=== PATIENT | female | born 1960 | race Caucasian/White ===

== ENCOUNTER → 2017-08-19 | Outpatient (CLI) | payer OTHER ==
[~2017-08-19] MED LIST: AMLO5TAB2 PO; CETI10CA PO; ESTR1PAT13 TD; FLUT200B INH; HYDR25TA6 PO; LOVA40TA2 PO; MONTELUKAST PO; PANT40TA5 PO
== END ==
LOC: STAR 08:09
PROVIDERS: ATTEND Otolaryngology
DX: Z02.9 Encounter for administrative examinations, unspecified (principal)

== ENCOUNTER → 2017-08-19 | Outpatient (CLI) | payer OTHER | END | disposition home or self-care (01) | LOC: CFH 09:30 → EDSTATUS 10:15 | PROVIDERS: ATTEND Family Medicine | DX: Z12.31 Encounter for screening mammogram for malignant neoplasm of breast (principal) | CPT/HCPCS: 77067 ==

== ENCOUNTER 2017-08-23 05:58 | Day surgery (SDC) | payer OTHER ==
[~2017-08-23] VITALS: Ht 172.7 cm; Wt 92.8 kg
[2017-08-23 06:48] VITALS: BP 131/86
[2017-08-23] MEDS ORDERED: LACTATED RINGERS 1,000 ML IV SCH (06:52)
[2017-08-23] MEDS ORDERED: LIDOCAINE-MPF 1%, 2ML INFIL ONE (07:00)
[2017-08-23] MEDS ORDERED: EPINEPHRINE 1 MG/ML, 1ML ONE (07:04)
[2017-08-23] MEDS ORDERED: LIDOCAINE 1%, 20ML ONE (07:04)
[2017-08-23] MEDS ORDERED: BACITRACIN OINT 500U/GM, 15 GM ONE (07:04)
[2017-08-23] MEDS ORDERED: OXYMETAZOLINE NASAL SPRAY 0.05%, 15ML ONE (07:04)
[2017-08-23] MEDS ORDERED: EPINEPHRINE TOPICAL SOLN 1 MG/ML, 30ML ONE (07:04)
[2017-08-23] MEDS ORDERED: FLUORESCEIN OPHTHALMIC 1 MG STRIP ONE (07:04)
[2017-08-23] MEDS ORDERED: ACETAMINOPHEN 500 MG TABLET ONE (07:16)
[2017-08-23] MEDS ORDERED: FAMOTIDINE 20 MG TABLET ONE (07:16)
[2017-08-23] MEDS ORDERED: GABAPENTIN 300 MG CAPSULE ONE (07:17)
[2017-08-23] MEDS ORDERED: FAMOTIDINE 20 MG TABLET PO ONE (07:30)
[2017-08-23] MEDS ORDERED: GABAPENTIN 300 MG CAPSULE PO ONE (07:30)
[2017-08-23] MEDS ORDERED: ACETAMINOPHEN 500 MG TABLET PO ONE (07:30)
[2017-08-23] MEDS ORDERED: FENTANYL PF 250 MCG/5ML ONE (08:14)
[2017-08-23] MEDS ORDERED: MIDAZOLAM 1 MG/ML, 2ML ONE (08:14)
[2017-08-23] MEDS ORDERED: PROPOFOL 50 ML ONE (08:18)
[2017-08-23] MEDS ORDERED: ALBUTEROL SULFATE 2.5 MG/3 ML NPPB PRN (09:30)
[2017-08-23] MEDS ORDERED: MEPERIDINE/PF 25MG/0.5ML IVPush PRN (09:30)
[2017-08-23] MEDS ORDERED: PROMETHAZINE 25 MG/ML, 1ML IV PRN (09:30)
[2017-08-23] MEDS ORDERED: OXYcodone 5 MG/5 ML ORAL.SOL UDC PO PRN (09:30)
[2017-08-23] MEDS ORDERED: ACETAMINOPHEN 650 MG/20.3 ML UDC ONE (10:28)
[2017-08-23] MEDS ORDERED: OXYcodone 5 MG/5 ML ORAL.SOL UDC ONE (10:28)
[2017-08-23] MEDS ORDERED: DEXAMETHASONE 4 MG/ML, 5ML ONE (10:48)
[2017-08-23] MEDS ORDERED: GLYCOPYRROLATE 0.2MG/1ML, 5ML ONE (10:48)
[2017-08-23] MEDS ORDERED: ONDANSETRON 2MG/ML, 2ML ONE (10:48)
[2017-08-23] MEDS ORDERED: ROCURONIUM 10 MG/ML,10ML ONE (10:48)
[2017-08-23] MEDS ORDERED: CEFAZOLIN 1,000 MG ONE (10:48)
[2017-08-23] MEDS ORDERED: NEOSTIGMINE 1 MG/ML, 10ML ONE (10:48)
[2017-08-23] MEDS ORDERED: PROPOFOL 10 MG/ML, 20ML ONE (10:49)
[2017-08-23] MEDS ORDERED: FENTANYL PF 100 MCG/2ML ONE (10:52)
[2017-08-23] MEDS: FENTANYL PF 100 MCG/2ML IV PRN ×2 (10:54→11:00)
== END 2017-08-23 13:15 ==
LOC: OUT 05:58
PROVIDERS: ATTEND Otolaryngology
DX: J32.9 Chronic sinusitis, unspecified (principal); I10 Essential (primary) hypertension; E78.00 Pure hypercholesterolemia, unspecified; J45.909 Unspecified asthma, uncomplicated; K21.9 Gastro-esophageal reflux disease without esophagitis; Z88.1 Allergy status to other antibiotic agents
CPT/HCPCS: 31240; 31256; 31259; 61782; 87070; 87075; 87077; 87102; 87205; 88304; 88305; 88311; J0171; J0690; J1100; J2250; J2405; J2704; J2710; J3010; J3490; J7120; 87186; 88312

== ENCOUNTER → 2017-12-06 | Outpatient (CLI) | payer OTHER ==
[2017-12-06 10:02] LABS: ALANINE AMINOTRANSFERASE 41 U/L (12-78); ALBUMIN 3.8 g/dL (3.4-5.0); ANION GAP 5 mmol/L (5-15); CALCIUM 8.5 mg/dL (8.5-10.1); CHLORIDE 106 mmol/L (98-107); CHOLESTEROL, TOTAL 205 mg/dL (140-239)
[2017-12-06 10:04] LABS: ALKALINE PHOSPHATASE 75 U/L (45-117); CHOL/HDL RATIO 3.1; HDL CHOL % 32 % (28-40); HDL CHOLESTEROL (DIRECT) 66 mg/dL (40-60); LDL CHOLESTEROL,CALCULATED 111 mg/dL (54-169); LDL/HDL RATIO 1.7 (0.5-3.0); TOTAL PROTEIN 7.1 g/dL (6.4-8.2); TRIGLYCERIDES 142 mg/dL (50-200); VLDL CHOLESTEROL 28 mg/dL (0-25)
== END | disposition home or self-care (01) ==
LOC: LAB 09:35
PROVIDERS: ATTEND Family Medicine
DX: E78.5 Hyperlipidemia, unspecified (principal)
CPT/HCPCS: 36415; 80053; 80061

== ENCOUNTER → 2018-01-18 | Outpatient (CLI) | payer OTHER | END | disposition home or self-care (01) | LOC: LAB 11:57 | PROVIDERS: ATTEND Allergy & Immunology | DX: J45.909 Unspecified asthma, uncomplicated (principal); D83.9 Common variable immunodeficiency, unspecified; Z88.2 Allergy status to sulfonamides; Z88.5 Allergy status to narcotic agent; Z87.891 Personal history of nicotine dependence | CPT/HCPCS: 36415; 82784; 82785; 82787; 86003 ==

== ENCOUNTER → 2018-06-12 | Outpatient (CLI) | payer OTHER ==
[~2018-06-12] MED LIST changes: +AMLO-150 PO; -AMLO5TAB2 PO
== END | disposition home or self-care (01) ==
LOC: CFH 12:24
PROVIDERS: ATTEND Family Medicine
DX: M19.011 Primary osteoarthritis, right shoulder (principal); M75.51 Bursitis of right shoulder

== ENCOUNTER → 2018-07-04 | Outpatient (CLI) | payer OTHER ==
[2018-07-04 09:14] LABS: ALANINE AMINOTRANSFERASE 32 U/L (12-78); ALBUMIN 3.9 g/dL (3.4-5.0); ANION GAP 5 mmol/L (5-15); CALCIUM 8.9 mg/dL (8.5-10.1); CHLORIDE 104 mmol/L (98-107)
[2018-07-04 09:17] LABS: ALKALINE PHOSPHATASE 78 U/L (45-117); BILIRUBIN,TOTAL 1.2 mg/dL (0.2-1.0); CHOL/HDL RATIO 3.3; CHOLESTEROL, TOTAL 220 mg/dL (140-239); CREATININE 0.66 mg/dL (0.55-1.02); HDL CHOL % 30 % (28-40); HDL CHOLESTEROL (DIRECT) 66 mg/dL (40-60); LDL CHOLESTEROL,CALCULATED 115 mg/dL (54-169); LDL/HDL RATIO 1.7 (0.5-3.0); TOTAL PROTEIN 7.5 g/dL (6.4-8.2); TRIGLYCERIDES 194 mg/dL (50-200); VLDL CHOLESTEROL 39 mg/dL (0-25)
== END | disposition home or self-care (01) ==
LOC: LAB 08:48
PROVIDERS: ATTEND Nurse Practitioner Family
DX: I10 Essential (primary) hypertension (principal)
CPT/HCPCS: 36415; 80053; 80061; 82043

== ENCOUNTER 2018-08-28 11:18 | Emergency (ER) | payer OTHER ==
[2018-08-28 11:20] VITALS: BP 163/92
[2018-08-28] MEDS ORDERED: [UNRECOGNIZED DRUG - CODE] INH (11:32)
[2018-08-28] MEDS ORDERED: PLEASE ENTER HEIGHT AND WEIGHT MC SCH (11:36)
[2018-08-28] MEDS ORDERED: KETOROLAC 30 MG/1 ML ONE (11:45)
[2018-08-28] MEDS ORDERED: KETOROLAC 30 MG/1 ML IM ONE (12:00)
[2018-08-28] MEDS ORDERED: SODIUM CHLORIDE 0.9% 1,000 ML IV ONE (12:42)
[2018-08-28 13:01] LABS: BASOPHILS # (AUTO) 0.02 x10^3/uL (0-0.1); BASOPHILS % (AUTO) 0 % (0-1); EOSINOPHILS # (AUTO) 0.37 x10^3/uL (0-0.4); EOSINOPHILS % (AUTO) 4 % (1-7); LYMPHOCYTES # (AUTO) 1.62 x10^3/uL (1-3.4); LYMPHOCYTES % (AUTO) 19 % (22-44); MD NO; MEAN CORPUSCULAR HEMOGLOBIN 32.7 pg (27.0-34.8); MEAN CORPUSCULAR HGB CONC 35.2 g/dL (32.4-35.8); MEAN CORPUSCULAR VOLUME 92.8 fL (80-100); MEAN PLATELET VOLUME 7.5 fL (7.4-10.4); MONOCYTES # (AUTO) 0.44 x10^3/uL (0.2-0.8); MONOCYTES % (AUTO) 5 % (2-9); NEUTROPHILS # (AUTO) 6.13 x10^3/uL (1.8-6.8); NEUTROPHILS % (AUTO) 71 % (42-75); PLATELET COUNT 282 x10^3/uL (130-400); RED BLOOD COUNT 4.55 x10^6/uL (3.82-5.3); RED CELL DISTRIBUTION WIDTH 12.5 % (9.6-15.2)
[2018-08-28 13:12] LABS: ALBUMIN 4.2 g/dL (3.4-5.0); ANION GAP 7 mmol/L (5-15); CALCIUM 9.2 mg/dL (8.5-10.1); CHLORIDE 104 mmol/L (98-107); CREATININE 0.69 mg/dL (0.55-1.02)
[2018-08-28] MEDS ORDERED: OMNIPAQUE 350 MG/ML, 75ML BOTTLE ONE (14:13)
== END 2018-08-28 14:29 | disposition home or self-care (01) ==
LOC: ED 13:43
DX: S22.42XA Multiple fractures of ribs, left side, initial encounter for closed fracture (principal); J45.909 Unspecified asthma, uncomplicated; Z87.891 Personal history of nicotine dependence; W01.0XXA Fall on same level from slipping, tripping and stumbling without subsequent striking against object, initial encounter; Y93.89 Activity, other specified; Y92.098 Other place in other non-institutional residence as the place of occurrence of the external cause; Y99.8 Other external cause status
CPT/HCPCS: 36415; 71101; 71260; 73080; 80048; 82040; 85025; 96372; 99284; J1885; J7030; Q9967

== ENCOUNTER 2018-10-17 09:48 | Emergency (ER) | payer OTHER ==
[~2018-10-17] VITALS: Ht 172.7 cm; Wt 93.0 kg
[~2018-10-17 09:48] MED LIST changes: +[UNRECOGNIZED DRUG - CODE] INH
--- NOTE | 2018-10-17 10:00 | NUR ---
PT TO ED AFTER TRIPPING OVER DOG THIS MORNING. PT REPORTS PAIN WTIH MOTION TO RIGHT ELBOW AND PAIN WITH EXTENSION. PT ALSO HAS SWELLING TO NOSE, EYES AND FOREHEAD, WITH LAC TO MID FOREHEAD ABOVE NOSE. PT CONNECTED TO MONITORS. VSS. NO NEEDS EXPRESSED. [facility] MED STUDENT TO BS FOR ASSESSMENT. AWAITING EDMD EVALUATION AND ORDERS AT THIS TIME.
[2018-10-17] MEDS ORDERED: BACITRACIN ZINC OINT 500U/GM, 0.9 GM ONE (10:06)
[2018-10-17] MEDS ORDERED: HYDROcodone/APAP 5/325 TABLET ONE (10:28)
[2018-10-17] MEDS ORDERED: HYDROcodone/APAP 5/325 TABLET PO PRN (10:30)
--- NOTE | 2018-10-17 10:33 | NUR ---
edmd assessment complete. orders received. pt medicated per mar. awaiting results. vss. no needs expressed. call light within reach. pt to ct at this time.
--- NOTE | 2018-10-17 10:50 | NUR ---
pt back from imaging.
--- NOTE | 2018-10-17 11:45 | NUR ---
pt resting in room. vss. no needs expressed. awaiting splint.
[2018-10-17 12:00] VITALS: BP 122/67
== END 2018-10-17 13:13 | disposition home or self-care (01) ==
LOC: ED 12:27
DX: S52.121A Displaced fracture of head of right radius, initial encounter for closed fracture (principal); J45.909 Unspecified asthma, uncomplicated; Z87.891 Personal history of nicotine dependence; W01.0XXA Fall on same level from slipping, tripping and stumbling without subsequent striking against object, initial encounter; Y93.01 Activity, walking, marching and hiking; Y92.410 Unspecified street and highway as the place of occurrence of the external cause; Y99.8 Other external cause status
CPT/HCPCS: 29105; 70486; 99284

== ENCOUNTER → 2018-11-03 | Outpatient (CLI) | payer OTHER ==
[~2018-11-03] MED LIST changes: +AMLO2.5T5 PO; +MONT10TA6 PO
== END | disposition home or self-care (01) ==
LOC: CFH 14:19
PROVIDERS: ATTEND Orthopaedic Surgery
DX: S52.121A Displaced fracture of head of right radius, initial encounter for closed fracture (principal); X58.XXXA Exposure to other specified factors, initial encounter; Y93.89 Activity, other specified; Y92.89 Other specified places as the place of occurrence of the external cause; Y99.8 Other external cause status

== ENCOUNTER 2019-03-16 11:05 | Outpatient (CLI) | payer OTHER | END 2019-03-16 23:59 | disposition home or self-care (01) | LOC: LAB 11:05 | PROVIDERS: ATTEND Internal Medicine Critical Care Medicine | DX: I48.91 Unspecified atrial fibrillation (principal) | CPT/HCPCS: 87015; 87070; 87102; 87116; 87205; 87206 ==

== ENCOUNTER 2019-03-26 07:03 | Outpatient (CLI) | payer OTHER ==
[2019-03-26 07:31] LABS: ALANINE AMINOTRANSFERASE 37 U/L (12-78); ALBUMIN 3.9 g/dL (3.4-5.0); ANION GAP 8 mmol/L (5-15); CALCIUM 8.8 mg/dL (8.5-10.1); CHLORIDE 104 mmol/L (98-107); CREATININE 0.71 mg/dL (0.55-1.02)
[2019-03-26 07:33] LABS: ALKALINE PHOSPHATASE 62 U/L (45-117); BILIRUBIN,TOTAL 1.1 mg/dL (0.2-1.0); CHOL/HDL RATIO 3.6; CHOLESTEROL, TOTAL 204 mg/dL (140-239); HDL CHOL % 28 % (28-40); HDL CHOLESTEROL (DIRECT) 57 mg/dL (40-60); LDL CHOLESTEROL,CALCULATED 84 mg/dL (54-169); LDL/HDL RATIO 1.5 (0.5-3.0); TOTAL PROTEIN 7.1 g/dL (6.4-8.2); TRIGLYCERIDES 314 mg/dL (50-200); VLDL CHOLESTEROL 63 mg/dL (0-25)
== END 2019-03-26 23:59 | disposition home or self-care (01) ==
LOC: CFH 07:03
PROVIDERS: ATTEND Family Medicine
DX: Z12.31 Encounter for screening mammogram for malignant neoplasm of breast (principal); I10 Essential (primary) hypertension; S42.40 Unspecified fracture of lower end of humerus; X58.XXXD Exposure to other specified factors, subsequent encounter; Z78.0 Asymptomatic menopausal state
CPT/HCPCS: 36415; 77063; 77067; 77080; 80053; 80061; 82043

== ENCOUNTER → 2019-04-02 | Outpatient (CLI) | payer OTHER | END | disposition home or self-care (01) | LOC: CARD 11:47 | PROVIDERS: ATTEND Registered Nurse | DX: J45.909 Unspecified asthma, uncomplicated (principal); Z82.49 Family history of ischemic heart disease and other diseases of the circulatory system; Z83.6 Family history of other diseases of the respiratory system; Z87.891 Personal history of nicotine dependence; Z88.5 Allergy status to narcotic agent | CPT/HCPCS: 94060; 94726; 94729 ==

== ENCOUNTER 2019-04-23 13:28 | Outpatient (CLI) | payer OTHER | END 2019-04-23 23:59 | disposition home or self-care (01) | LOC: RAD 13:28 → EDSTATUS 04-24 10:30 | PROVIDERS: ATTEND Internal Medicine Critical Care Medicine | DX: J47.9 Bronchiectasis, uncomplicated (principal); Z87.891 Personal history of nicotine dependence; Z82.5 Family history of asthma and other chronic lower respiratory diseases | CPT/HCPCS: 71250 ==

== ENCOUNTER 2019-04-27 12:50 | Day surgery (SDC) ==
[~2019-04-27 12:50] MED LIST changes: +LIDOCAINE 4% TOPICAL SOLUTION 50 ML ONE
[2019-04-27] MEDS ORDERED: SODIUM CHLORIDE 0.9% 1,000 ML IV SCH ×2 (13:14→13:30)
[2019-04-27] MEDS ORDERED: PLEASE ENTER HEIGHT AND WEIGHT MC SCH (13:30)
[2019-04-27] MEDS ORDERED: BREO (13:32)
[2019-04-27] MEDS ORDERED: PREDNISONE (13:32)
[2019-04-27] MEDS ORDERED: PREDNISONE PO (13:33)
[2019-04-27] MEDS ORDERED: NEBULIZER (13:33)
[2019-04-27 14:17] LABS: BASOPHILS # (AUTO) 0.03 x10^3/uL (0-0.1); BASOPHILS % (AUTO) 0 % (0-1); EOSINOPHILS # (AUTO) 0.14 x10^3/uL (0-0.4); EOSINOPHILS % (AUTO) 1 % (1-7); LYMPHOCYTES # (AUTO) 1.24 x10^3/uL (1-3.4); LYMPHOCYTES % (AUTO) 9 % (22-44); MD NO; MEAN CORPUSCULAR HEMOGLOBIN 32.6 pg (27.0-34.8); MEAN CORPUSCULAR HGB CONC 33.6 g/dL (32.4-35.8); MEAN CORPUSCULAR VOLUME 97.1 fL (80-100); MEAN PLATELET VOLUME 7.7 fL (7.4-10.4); MONOCYTES # (AUTO) 0.41 x10^3/uL (0.2-0.8); MONOCYTES % (AUTO) 3 % (2-9); NEUTROPHILS # (AUTO) 12.06 x10^3/uL (1.8-6.8); NEUTROPHILS % (AUTO) 87 % (42-75); PLATELET COUNT 284 x10^3/uL (130-400); RED BLOOD COUNT 4.43 x10^6/uL (3.82-5.3); RED CELL DISTRIBUTION WIDTH 12.8 % (9.6-15.2)
[2019-04-27 14:26] LABS: PROTHROMBIN TIME 10.5 Seconds (9.6-11.5)
[2019-04-27] MEDS ORDERED: FENTANYL PF 100 MCG/2ML ONE (14:57)
[2019-04-27] MEDS ORDERED: MIDAZOLAM 1 MG/ML, 5ML ONE (14:57)
== END 2019-04-27 17:57 | disposition home or self-care (01) ==
LOC: OUT 12:50
PROVIDERS: ATTEND Internal Medicine
DX: R91.8 Other nonspecific abnormal finding of lung field (principal); J20.9 Acute bronchitis, unspecified; J45.909 Unspecified asthma, uncomplicated; G47.30 Sleep apnea, unspecified; E78.2 Mixed hyperlipidemia; I10 Essential (primary) hypertension; Z88.5 Allergy status to narcotic agent; Z98.890 Other specified postprocedural states; Z79.899 Other long term (current) drug therapy; Z79.01 Long term (current) use of anticoagulants
CPT/HCPCS: 31624; 36415; 85025; 85610; 85730; 87015; 87070; 87102; 87116; 87205; 87206; 88112; 88305; 99152; 99153; J2250; J3010; 87107; 88312

== ENCOUNTER 2019-05-01 21:02 | Inpatient (IN) | payer OTHER ==
[~2019-05-01] VITALS: Ht 172.7 cm; Wt 102.1 kg
[~2019-05-01 21:02] MED LIST changes: +BREO; -LIDOCAINE 4% TOPICAL SOLUTION 50 ML ONE; +NEBULIZER; +PREDNISONE; +PREDNISONE PO
--- NOTE | 2019-05-01 21:28 | NUR ---
PT PRESENTING TO ER FOR SOB, N/V SINCE THIS AFTERNOON. HX OF ASTHMA, DID 5 NEB TREATMENTS AT HOME WITHOUT RELIEF. FEBRILE AT HOME, TOOK ADVIL AT 1800 BUT STATES VOMITTED AROUND 1930. CONNECTED TO ALL MONITORING, TACHY HR AT 130, RAPID RESP RATE. IV PLACED. MD TO BEDSIDE FOR ASSESSMENT. AWAITING ORDERS AT THIS TIME. FAMILY AT BEDSIDE. CALL LIGHT WITHIN REACH
--- NOTE | 2019-05-01 21:37 | NUR ---
FLUIDS STARTED. RAD AT BEDSIDE. PT GIVEN PO FLUIDS WITH MD PERMISSION.
[2019-05-01] MEDS ORDERED: ACETAMINOPHEN 325 MG TABLET ONE (21:40)
[2019-05-01] MEDS ORDERED: SODIUM CHLORIDE 0.9% 1,000ML IVBOLUS ONE ×2 (22:00→23:30)
[2019-05-01] MEDS ORDERED: ACETAMINOPHEN 325 MG TABLET PO ONE (22:00)
[2019-05-01 22:13] LABS: RAPID INFLUENZA A Negative (Negative); RAPID INFLUENZA B Negative (Negative)
--- NOTE | 2019-05-01 22:22 | NUR ---
LAB AT BEDSIDE FOR COLLECTION
[2019-05-01] MEDS ORDERED: MONT10TA6 PO (22:36)
[2019-05-01 22:41] LABS: MEAN CORPUSCULAR HEMOGLOBIN 32.6 pg (27.0-34.8); MEAN CORPUSCULAR VOLUME 95.7 fL (80-100); MEAN PLATELET VOLUME 7.4 fL (7.4-10.4); PLATELET COUNT 243 x10^3/uL (130-400); RED BLOOD COUNT 4.15 x10^6/uL (3.82-5.3); RED CELL DISTRIBUTION WIDTH 12.6 % (9.6-15.2)
--- NOTE | 2019-05-01 22:50 | NUR ---
REPORT GIVEN TO MIRIAN NICKERSON
[2019-05-01 22:54] LABS: ALBUMIN 3.3 g/dL (3.4-5.0); ANION GAP 9 mmol/L (5-15); CALCIUM 8.2 mg/dL (8.5-10.1); CHLORIDE 105 mmol/L (98-107); CREATININE 0.81 mg/dL (0.55-1.02)
[2019-05-01 22:57] LABS: TROPONIN I < 0.015 ng/mL (0.000-0.045)
[2019-05-01 23:19] LABS: MD YES
[2019-05-01 23:21] LABS: <PLATELET ESTIMATE> ADEQUATE; <PLT MORPHOLOGY> NORMAL PLT MORPH; <RBC MORPHOLOGY> NORMAL; BAND#(MANUAL) 0.59 x10^3/uL; BANDS%(MANUAL) 3 % (0-7); BASOS% (MANUAL) 1 % (0-1); LYMPH#(MANUAL) 0.99 x10^3/uL (1-3.4); LYMPHS% (MANUAL) 5 % (22-44); MONOS#(MANUAL) 0.59 x10^3/uL (0.3-2.7); MONOS% (MANUAL) 3 % (2-9); SEG#(MANUAL) 17.42 x10^3/uL (1.8-6.8); SEGS% (MANUAL) 88 % (42-75)
[2019-05-01] MEDS ORDERED: VANCOMYCIN PER PHARMACY MC ONE (23:30)
[2019-05-01] MEDS ORDERED: CEFTRIAXONE PMX 1GM/50ML 50 ML IVPB ONE (23:30)
[2019-05-01] MEDS ORDERED: AZITHROMYCIN 500 MG in SODIUM CHLORIDE 0.9% 250 ML IV ONE (23:30)
[2019-05-01] MEDS ORDERED: POTASSIUM CHLORIDE 20 MEQ TAB.ER.PRT PO ONE (23:30)
[2019-05-01] MEDS ORDERED: VANCOMYCIN 1,600 MG in SODIUM CHLORIDE 0.9% 250 ML IV ONE (23:30)
[2019-05-01] MEDS ORDERED: CEFTRIAXONE PMX 1GM/50ML 50 ML ONE (23:33)
[2019-05-02] MEDS ORDERED: POTASSIUM CHLORIDE 20 MEQ TAB.ER.PRT ONE (00:22)
[2019-05-02] MEDS ORDERED: ONDANSETRON 2MG/ML, 2ML IVPush PRN (00:30)
[2019-05-02] MEDS ORDERED: VANCOMYCIN PER PHARMACY MC PRN (00:30)
[2019-05-02] MEDS ORDERED: SODIUM CHLORIDE 0.9% 1,000 ML IV SCH (00:30)
[2019-05-02] MEDS ORDERED: ONDANSETRON ODT 4 MG PO PRN (00:30)
[2019-05-02] MEDS ORDERED: LIDODERM 5% PATCH TD PRN (00:30)
[2019-05-02] MEDS ORDERED: PHARMACOKINETIC CONSULTATION MC ONE (01:30)
[2019-05-02] MEDS ORDERED: PHARMACOKINETIC MONITORING MC PRN (01:30)
[2019-05-02] MEDS ORDERED: VANCOMYCIN 1,600 MG in SODIUM CHLORIDE 0.9% 250 ML IV SCH ×2 (01:30→15:00)
[2019-05-02 01:51] VITALS: BP 121/64
[2019-05-02] MEDS: PIPERACILLIN/TAZO/PMX 4.5GM 100 ML IV SCH ×3 (02:09→14:22)
[2019-05-02] MEDS: ACETAMINOPHEN 325 MG TABLET PO PRN ×2 (02:35→12:23)
[2019-05-02] MEDS ORDERED: ALBUTEROL SULFATE 2.5 MG/3 ML NPPB PRN (03:00)
[2019-05-02] MEDS: NS + 40MEQ KCL 1,000 ML IV SCH ×3 (03:04→20:27)
[2019-05-02 03:31] VITALS: BP 126/67
[2019-05-02 06:29] LABS: MEAN CORPUSCULAR HEMOGLOBIN 32.2 pg (27.0-34.8); MEAN CORPUSCULAR HGB CONC 33.3 g/dL (32.4-35.8); MEAN CORPUSCULAR VOLUME 96.6 fL (80-100); MEAN PLATELET VOLUME 7.6 fL (7.4-10.4); PLATELET COUNT 249 x10^3/uL (130-400); RED BLOOD COUNT 4.06 x10^6/uL (3.82-5.3); RED CELL DISTRIBUTION WIDTH 12.5 % (9.6-15.2)
[2019-05-02 06:38] LABS: ANION GAP 6 mmol/L (5-15); CALCIUM 8.1 mg/dL (8.5-10.1); CHLORIDE 109 mmol/L (98-107)
[2019-05-02 06:42] LABS: ALANINE AMINOTRANSFERASE 27 U/L (12-78); ALKALINE PHOSPHATASE 70 U/L (45-117); BILIRUBIN,TOTAL 1.8 mg/dL (0.2-1.0); CREATININE 0.75 mg/dL (0.55-1.02); TOTAL PROTEIN 6.5 g/dL (6.4-8.2)
[2019-05-02 07:28] VITALS: BP 106/63
[2019-05-02 07:37] LABS: BASOPHILS # (AUTO) 0.02 x10^3/uL (0-0.1); BASOPHILS % (AUTO) 0 % (0-1); EOSINOPHILS # (AUTO) 0.22 x10^3/uL (0-0.4); EOSINOPHILS % (AUTO) 1 % (1-7); LYMPHOCYTES # (AUTO) 1.27 x10^3/uL (1-3.4); LYMPHOCYTES % (AUTO) 7 % (22-44); MD SCAN; MONOCYTES # (AUTO) 0.98 x10^3/uL (0.2-0.8); MONOCYTES % (AUTO) 5 % (2-9); NEUTROPHILS # (AUTO) 16.48 x10^3/uL (1.8-6.8); NEUTROPHILS % (AUTO) 87 % (42-75)
[2019-05-02] MEDS: ENOXAPARIN 40 MG/0.4 ML SQ SCH ×2 (08:12→20:27)
[2019-05-02] MEDS: AMLODIPINE 2.5 MG TABLET PO SCH (08:19)
[2019-05-02] MEDS: CETIRIZINE 10 MG TABLET PO SCH (08:19)
[2019-05-02] MEDS: PANTOPROZOLE 40MG TABLET PO SCH (08:20)
[2019-05-02 13:14] VITALS: BP 126/73
[2019-05-02] MEDS: NEUTRA PHOS K 250 MG TABLET PO SCH ×2 (18:22→20:24)
[2019-05-02] MEDS: LEVOFLOXACIN 750 MG TABLET PO SCH (18:22)
[2019-05-02 20:11] VITALS: BP 128/77
[2019-05-02] MEDS: LOVASTATIN 40 MG TABLET PO SCH (20:25)
[2019-05-02] MEDS: MONTELUKAST 10 MG TABLET PO SCH (20:25)
[2019-05-02] MEDS: METHOCARBAMOL 500 MG TABLET PO PRN (20:43)
[2019-05-03] MEDS: NS + 40MEQ KCL 1,000 ML IV SCH ×2 (02:57→08:50)
[2019-05-03 02:59] VITALS: BP 136/78
[2019-05-03 05:25] LABS: CALCIUM 7.7 mg/dL (8.5-10.1); CHLORIDE 110 mmol/L (98-107)
[2019-05-03 05:29] LABS: BASOPHILS # (AUTO) 0.04 x10^3/uL (0-0.1); BASOPHILS % (AUTO) 0 % (0-1); EOSINOPHILS % (AUTO) 2 % (1-7); LYMPHOCYTES # (AUTO) 1.48 x10^3/uL (1-3.4); LYMPHOCYTES % (AUTO) 12 % (22-44); MD NO; MEAN CORPUSCULAR HEMOGLOBIN 32.2 pg (27.0-34.8); MEAN CORPUSCULAR HGB CONC 33.2 g/dL (32.4-35.8); MEAN CORPUSCULAR VOLUME 97.1 fL (80-100); MEAN PLATELET VOLUME 7.4 fL (7.4-10.4); MONOCYTES # (AUTO) 0.89 x10^3/uL (0.2-0.8); MONOCYTES % (AUTO) 7 % (2-9); NEUTROPHILS # (AUTO) 10.15 x10^3/uL (1.8-6.8); NEUTROPHILS % (AUTO) 79 % (42-75); PLATELET COUNT 221 x10^3/uL (130-400); RED BLOOD COUNT 3.57 x10^6/uL (3.82-5.3); RED CELL DISTRIBUTION WIDTH 12.7 % (9.6-15.2)
[2019-05-03 05:32] LABS: ALANINE AMINOTRANSFERASE 29 U/L (12-78); ALBUMIN 2.9 g/dL (3.4-5.0); ALKALINE PHOSPHATASE 70 U/L (45-117); ANION GAP 6 mmol/L (5-15); BILIRUBIN,TOTAL 1.2 mg/dL (0.2-1.0); CREATININE 0.61 mg/dL (0.55-1.02); TOTAL PROTEIN 6.1 g/dL (6.4-8.2)
[2019-05-03 07:05] VITALS: BP 122/77
[2019-05-03] MEDS: AMLODIPINE 2.5 MG TABLET PO SCH (08:58)
[2019-05-03] MEDS: CETIRIZINE 10 MG TABLET PO SCH (08:58)
[2019-05-03] MEDS: PANTOPROZOLE 40MG TABLET PO SCH (08:58)
[2019-05-03] MEDS: NEUTRA PHOS K 250 MG TABLET PO SCH ×3 (08:58→19:29)
[2019-05-03 13:30] VITALS: BP 128/81
[2019-05-03] MEDS: LEVOFLOXACIN 750 MG TABLET PO SCH (16:53)
[2019-05-03] MEDS: METHOCARBAMOL 500 MG TABLET PO PRN (19:28)
[2019-05-03] MEDS: LOVASTATIN 40 MG TABLET PO SCH (19:28)
[2019-05-03] MEDS: MONTELUKAST 10 MG TABLET PO SCH (19:28)
[2019-05-03] MEDS: ENOXAPARIN 40 MG/0.4 ML SQ SCH (19:29)
[2019-05-03 19:35] VITALS: BP 134/81
[2019-05-04] MEDS: ACETAMINOPHEN 325 MG TABLET PO PRN (01:35)
[2019-05-04 01:38] VITALS: BP 137/83
[2019-05-04 07:40] VITALS: BP 124/67
[2019-05-04] MEDS: PANTOPROZOLE 40MG TABLET PO SCH (07:56)
[2019-05-04] MEDS: NEUTRA PHOS K 250 MG TABLET PO SCH ×3 (09:19→20:26)
[2019-05-04] MEDS: AMLODIPINE 2.5 MG TABLET PO SCH (09:19)
[2019-05-04] MEDS: CETIRIZINE 10 MG TABLET PO SCH (09:19)
[2019-05-04 13:10] VITALS: BP 120/74
[2019-05-04] MEDS: LEVOFLOXACIN 750 MG TABLET PO SCH (16:58)
[2019-05-04] MEDS: ENOXAPARIN 40 MG/0.4 ML SQ SCH (20:26)
[2019-05-04] MEDS: MONTELUKAST 10 MG TABLET PO SCH (20:26)
[2019-05-04] MEDS: LOVASTATIN 40 MG TABLET PO SCH (20:26)
[2019-05-04 20:39] VITALS: BP 132/75
[2019-05-04] MEDS ORDERED: DOCUSATE 100 MG CAPSULE ONE (21:13)
[2019-05-04] MEDS: DOCUSATE 100 MG CAPSULE PO PRN (21:15)
[2019-05-05 02:04] VITALS: BP 118/72
[2019-05-05 05:24] LABS: BASOPHILS # (AUTO) 0.07 x10^3/uL (0-0.1); BASOPHILS % (AUTO) 1 % (0-1); EOSINOPHILS % (AUTO) 1 % (1-7); LYMPHOCYTES # (AUTO) 1.42 x10^3/uL (1-3.4); LYMPHOCYTES % (AUTO) 17 % (22-44); MD NO; MEAN CORPUSCULAR HGB CONC 34.3 g/dL (32.4-35.8); MEAN CORPUSCULAR VOLUME 96.2 fL (80-100); MEAN PLATELET VOLUME 7.3 fL (7.4-10.4); MONOCYTES # (AUTO) 0.69 x10^3/uL (0.2-0.8); MONOCYTES % (AUTO) 8 % (2-9); NEUTROPHILS % (AUTO) 72 % (42-75); PLATELET COUNT 213 x10^3/uL (130-400); RED BLOOD COUNT 3.17 x10^6/uL (3.82-5.3); RED CELL DISTRIBUTION WIDTH 12.3 % (9.6-15.2)
[2019-05-05 05:26] LABS: ANION GAP 5 mmol/L (5-15); CHLORIDE 105 mmol/L (98-107); CREATININE 0.51 mg/dL (0.55-1.02)
[2019-05-05 07:05] VITALS: BP 117/74
[2019-05-05] MEDS: NEUTRA PHOS K 250 MG TABLET PO SCH (09:22)
[2019-05-05] MEDS: PANTOPROZOLE 40MG TABLET PO SCH (09:22)
[2019-05-05] MEDS: AMLODIPINE 2.5 MG TABLET PO SCH (09:22)
[2019-05-05] MEDS: CETIRIZINE 10 MG TABLET PO SCH (09:22)
[2019-05-05] MEDS: DOCUSATE 100 MG CAPSULE PO PRN (09:56)
[2019-05-05] MEDS ORDERED: LEVO750T26 PO (10:00)
[2019-05-05] MEDS ORDERED: GUAI200T37 PO (10:00)
[2019-05-05] MEDS ORDERED: PNEUMOC 13-VALENT VACC, 0.5 ML IM-VACC ONE ×2 (12:00→14:00)
[2019-05-05 13:38] VITALS: BP 116/72
[2019-05-05] MEDS ORDERED: TRAM50TA2 PO (15:15)
== END 2019-05-05 15:10 | disposition home or self-care (01) | DRG 871 ==
LOC: ED 21:20 → EDIP 23:32 → 5SO 05-02 01:02 → DCLOUNGE 05-05 15:00
PROVIDERS: ADMIT Internal Medicine; ATTEND Internal Medicine
DX: A41.9 Sepsis, unspecified organism (principal); J15.9 Unspecified bacterial pneumonia; A31.0 Pulmonary mycobacterial infection; E78.5 Hyperlipidemia, unspecified; E83.39 Other disorders of phosphorus metabolism; E87.6 Hypokalemia; I10 Essential (primary) hypertension; J45.909 Unspecified asthma, uncomplicated; K21.9 Gastro-esophageal reflux disease without esophagitis; R09.02 Hypoxemia; Z88.5 Allergy status to narcotic agent; Z81.8 Family history of other mental and behavioral disorders; Z82.49 Family history of ischemic heart disease and other diseases of the circulatory system; Z87.891 Personal history of nicotine dependence; Z90.710 Acquired absence of both cervix and uterus
CPT/HCPCS: 36415; 84145; 87400; 96360; 96361; 99291; J7613; 71045; 80048; 80053; 82040; 83605; 83735; 84100; 84484; 85025; 87040; 87070; 87077; 87184; 87205; 87633; 93005; G0378; J0456; J0696; J2405; J2543; J3370; G0009; J3480; J7030; J7050

== ENCOUNTER → 2019-05-08 | Outpatient (CLI) | payer OTHER ==
[~2019-05-08] MED LIST changes: +GUAI200T37 PO; +LEVO750T26 PO; +TRAM50TA2 PO
== END | disposition home or self-care (01) ==
LOC: LAB 17:11
PROVIDERS: ATTEND Internal Medicine
DX: J45.40 Moderate persistent asthma, uncomplicated (principal); Z87.891 Personal history of nicotine dependence
CPT/HCPCS: 87070; 87205

== ENCOUNTER → 2019-05-11 | Outpatient (CLI) | payer OTHER ==
[2019-05-11 10:26] LABS: BASOPHILS # (AUTO) 0.02 x10^3/uL (0-0.1); BASOPHILS % (AUTO) 0 % (0-1); EOSINOPHILS # (AUTO) 0.23 x10^3/uL (0-0.4); EOSINOPHILS % (AUTO) 3 % (1-7); LYMPHOCYTES % (AUTO) 22 % (22-44); MD NO; MEAN CORPUSCULAR HEMOGLOBIN 31.9 pg (27.0-34.8); MEAN CORPUSCULAR VOLUME 96.6 fL (80-100); MEAN PLATELET VOLUME 6.6 fL (7.4-10.4); MONOCYTES # (AUTO) 0.58 x10^3/uL (0.2-0.8); MONOCYTES % (AUTO) 8 % (2-9); NEUTROPHILS # (AUTO) 4.82 x10^3/uL (1.8-6.8); NEUTROPHILS % (AUTO) 66 % (42-75); PLATELET COUNT 357 x10^3/uL (130-400); RED BLOOD COUNT 4.36 x10^6/uL (3.82-5.3); RED CELL DISTRIBUTION WIDTH 12.3 % (9.6-15.2)
[2019-05-11 10:36] LABS: ALANINE AMINOTRANSFERASE 46 U/L (12-78); ALBUMIN 3.6 g/dL (3.4-5.0); ANION GAP 7 mmol/L (5-15); CALCIUM 9.4 mg/dL (8.5-10.1); CHLORIDE 103 mmol/L (98-107); CREATININE 0.78 mg/dL (0.55-1.02)
[2019-05-11 10:38] LABS: HCT (SEDRATE) 42.1 % (34.6-47.8)
[2019-05-11 10:43] LABS: ALKALINE PHOSPHATASE 82 U/L (45-117); BILIRUBIN,TOTAL 0.8 mg/dL (0.2-1.0); TOTAL PROTEIN 7.6 g/dL (6.4-8.2)
== END | disposition home or self-care (01) ==
LOC: LAB 10:14
PROVIDERS: ATTEND Internal Medicine Infectious Disease
DX: A31.0 Pulmonary mycobacterial infection (principal); J18.9 Pneumonia, unspecified organism; R79.82 Elevated C-reactive protein (CRP); R70.0 Elevated erythrocyte sedimentation rate
CPT/HCPCS: 36415; 80053; 85025; 85651; 86140

== ENCOUNTER → 2019-07-23 | Outpatient (CLI) | payer OTHER ==
[~2019-07-23] MED LIST changes: +CETI10TA26 PO; +FLUT1AER INH; +[UNRECOGNIZED DRUG - CODE] NAS
== END | disposition home or self-care (01) ==
LOC: LAB 10:37
PROVIDERS: ATTEND Internal Medicine
DX: J18.9 Pneumonia, unspecified organism (principal); E66.1 Drug-induced obesity; B44.9 Aspergillosis, unspecified; J45.40 Moderate persistent asthma, uncomplicated; J47.9 Bronchiectasis, uncomplicated
CPT/HCPCS: 87070; 87205

== ENCOUNTER → 2019-07-23 | Outpatient (CLI) | payer OTHER | END | disposition home or self-care (01) | LOC: STAR 08:17 | PROVIDERS: ATTEND Obstetrics & Gynecology Female Pelvic Medicine and Reconstructive Surgery | DX: Z01.818 Encounter for other preprocedural examination (principal); N81.10 Cystocele, unspecified; N81.6 Rectocele; N39.3 Stress incontinence (female) (male); R10.2 Pelvic and perineal pain | CPT/HCPCS: 93005 ==

== ENCOUNTER → 2019-08-20 | Outpatient (CLI) | payer OTHER | END | disposition home or self-care (01) | LOC: LAB 14:49 | PROVIDERS: ATTEND Allergy & Immunology Allergy | DX: D84.9 Immunodeficiency, unspecified (principal); Z87.01 Personal history of pneumonia (recurrent) | CPT/HCPCS: 36415; 82784; 82785; 86317; 86609 ==

== ENCOUNTER → 2019-10-15 | Outpatient (CLI) | payer OTHER | END | disposition home or self-care (01) | LOC: LAB 10:20 | PROVIDERS: ATTEND Internal Medicine | DX: J45.40 Moderate persistent asthma, uncomplicated (principal); J18.9 Pneumonia, unspecified organism; B44.9 Aspergillosis, unspecified; E66.1 Drug-induced obesity; J47.9 Bronchiectasis, uncomplicated | CPT/HCPCS: 87070; 87205 ==

== ENCOUNTER 2019-12-04 15:15 | Outpatient (CLI) | payer OTHER ==
[~2019-12-04 15:15] MED LIST changes: -CETI10TA26 PO; +CETI10TA76 PO; -PANT40TA5 PO; +PANT40TA6 PO
== END 2019-12-04 23:59 | disposition home or self-care (01) ==
LOC: LAB 15:15
PROVIDERS: ATTEND Internal Medicine
DX: J45.50 Severe persistent asthma, uncomplicated (principal); J45.40 Moderate persistent asthma, uncomplicated
CPT/HCPCS: 36415; 82785; 86606; 87015; 87070; 87102; 87116; 87181; 87186; 87205; 87206; 87305

== ENCOUNTER 2019-12-31 07:10 | Outpatient (CLI) | payer OTHER ==
[2019-12-31 07:32] LABS: BASOPHILS # (AUTO) 0.02 x10^3/uL (0-0.1); BASOPHILS % (AUTO) 0 % (0-1); EOSINOPHILS # (AUTO) 0.22 x10^3/uL (0-0.4); EOSINOPHILS % (AUTO) 4 % (1-7); LYMPHOCYTES # (AUTO) 1.52 x10^3/uL (1-3.4); LYMPHOCYTES % (AUTO) 24 % (22-44); MD NO; MEAN CORPUSCULAR HEMOGLOBIN 31.5 pg (27.0-34.8); MEAN CORPUSCULAR HGB CONC 33.4 g/dL (32.4-35.8); MEAN PLATELET VOLUME 6.9 fL (7.4-10.4); MONOCYTES # (AUTO) 0.45 x10^3/uL (0.2-0.8); MONOCYTES % (AUTO) 7 % (2-9); NEUTROPHILS # (AUTO) 4.08 x10^3/uL (1.8-6.8); NEUTROPHILS % (AUTO) 65 % (42-75); PLATELET COUNT 242 x10^3/uL (130-400); RED BLOOD COUNT 4.25 x10^6/uL (3.82-5.3); RED CELL DISTRIBUTION WIDTH 12.5 % (9.6-15.2)
[2019-12-31 07:44] LABS: CALCIUM 8.9 mg/dL (8.5-10.1); CHLORIDE 107 mmol/L (98-107)
[2019-12-31 07:48] LABS: ALANINE AMINOTRANSFERASE 40 U/L (12-78); ALKALINE PHOSPHATASE 75 U/L (45-117); ANION GAP 7 mmol/L (5-15); BILIRUBIN,TOTAL 1.1 mg/dL (0.2-1.0); CHOL/HDL RATIO 3.5; CHOLESTEROL, TOTAL 225 mg/dL (140-239); CREATININE 0.73 mg/dL (0.55-1.02); HDL CHOL % 29 % (28-40); HDL CHOLESTEROL (DIRECT) 65 mg/dL (40-60); LDL CHOLESTEROL,CALCULATED 133 mg/dL (54-169); TOTAL PROTEIN 7.1 g/dL (6.4-8.2); TRIGLYCERIDES 137 mg/dL (50-200); VLDL CHOLESTEROL 27 mg/dL (0-25)
== END 2019-12-31 23:59 | disposition home or self-care (01) ==
LOC: LAB 07:10
PROVIDERS: ATTEND Family Medicine
DX: I10 Essential (primary) hypertension (principal); D72.829 Elevated white blood cell count, unspecified; Z87.01 Personal history of pneumonia (recurrent)
CPT/HCPCS: 36415; 80053; 80061; 82043; 85025; 86609

== ENCOUNTER → 2020-01-08 | Outpatient (CLI) | payer OTHER ==
[~2020-01-08] MED LIST changes: +CETI10TA26 PO; -CETI10TA76 PO; +PANT40TA5 PO; -PANT40TA6 PO
== END | disposition home or self-care (01) ==
LOC: CFH 08:14
PROVIDERS: ATTEND Internal Medicine
DX: J45.40 Moderate persistent asthma, uncomplicated (principal)
CPT/HCPCS: 71250

== ENCOUNTER 2020-01-28 14:13 | Outpatient (CLI) | payer OTHER ==
[~2020-01-28 14:13] MED LIST changes: -CETI10TA26 PO; +CETI10TA76 PO; -PANT40TA5 PO; +PANT40TA6 PO
== END 2020-01-29 23:59 | disposition home or self-care (01) ==
LOC: STAR 14:13
PROVIDERS: ATTEND Internal Medicine
DX: Z01.818 Encounter for other preprocedural examination (principal); J45.40 Moderate persistent asthma, uncomplicated; Z20.828 Contact with and (suspected) exposure to other viral communicable diseases
CPT/HCPCS: 36415; 87635; 93005

== ENCOUNTER 2020-02-01 10:53 | Day surgery (SDC) | payer OTHER ==
[~2020-02-01] VITALS: Ht 172.7 cm; Wt 92.3 kg
[2020-02-01] MEDS ORDERED: SODIUM CHLORIDE 0.9% 1,000 ML IV ONE (11:11)
[2020-02-01] MEDS ORDERED: CHLORHEXIDINE 15 ML UDC ONE (11:19)
[2020-02-01 11:24] VITALS: BP 165/105
[2020-02-01] MEDS ORDERED: CHLORHEXIDINE 15 ML UDC MM STA (11:30)
[2020-02-01] MEDS ORDERED: FENTANYL PF 100 MCG/2ML ONE (12:51)
[2020-02-01] MEDS ORDERED: MIDAZOLAM 1 MG/ML, 5ML ONE (12:51)
[2020-02-01] MEDS ORDERED: GLYCOPYRROLATE 0.4 MG/2 ML, 2ML ONE (12:52)
[2020-02-01] MEDS ORDERED: DIPHENHYDRAMINE 50 MG/ML, 1ML ONE (12:52)
[2020-02-01] MEDS ORDERED: ALBUTEROL SULFATE 2.5 MG/3 ML ONE ×2 (13:00→15:11)
[2020-02-01] MEDS ORDERED: ALBUTEROL SULFATE 2.5 MG/3 ML NPPB PRN (15:00)
[2020-02-01] MEDS ORDERED: LIDOCAINE GEL 2%, 5ML ONE (15:00)
[2020-02-01] MEDS ORDERED: LIDOCAINE 4% TOPICAL SOLUTION 50 ML ONE (15:00)
[2020-02-01] MEDS ORDERED: LIDOCAINE 2%, 20ML ONE (15:00)
== END 2020-02-01 16:40 | disposition home or self-care (01) ==
LOC: OUT 10:53
PROVIDERS: ATTEND Internal Medicine
DX: J45.50 Severe persistent asthma, uncomplicated (principal); G47.33 Obstructive sleep apnea (adult) (pediatric); I10 Essential (primary) hypertension; E78.2 Mixed hyperlipidemia; E66.9 Obesity, unspecified; Z68.31 Body mass index [BMI] 31.0-31.9, adult; Z79.899 Other long term (current) drug therapy; Z88.5 Allergy status to narcotic agent
CPT/HCPCS: 31660; 94640; 99152; 99153; C1886; J1200; J2250; J3010

== ENCOUNTER → 2020-03-03 | Outpatient (CLI) | payer OTHER | END | disposition home or self-care (01) | LOC: STAR 15:15 | PROVIDERS: ATTEND Anesthesiology | DX: Z01.812 Encounter for preprocedural laboratory examination (principal); Z20.828 Contact with and (suspected) exposure to other viral communicable diseases | CPT/HCPCS: 36415; 87635 ==

== ENCOUNTER 2020-03-07 06:26 | Day surgery (SDC) | payer OTHER ==
[~2020-03-07] VITALS: Ht 172.7 cm; Wt 93.0 kg
[2020-03-07 06:44] VITALS: BP 157/89
[2020-03-07] MEDS ORDERED: SODIUM CHLORIDE 0.9% 1,000 ML IV SCH (06:47)
[2020-03-07] MEDS ORDERED: DIPHENHYDRAMINE 50 MG/ML, 1ML ONE (07:12)
[2020-03-07] MEDS ORDERED: GLYCOPYRROLATE 0.4 MG/2 ML, 2ML ONE (07:12)
[2020-03-07] MEDS ORDERED: FENTANYL PF 100 MCG/2ML ONE (07:14)
[2020-03-07] MEDS ORDERED: MIDAZOLAM 1 MG/ML, 5ML ONE (07:14)
[2020-03-07] MEDS ORDERED: LIDOCAINE GEL 2%, 5ML ONE (08:00)
[2020-03-07] MEDS ORDERED: LIDOCAINE 2%, 20ML ONE (08:00)
[2020-03-07] MEDS ORDERED: LIDOCAINE 4% TOPICAL SOLUTION 50 ML ONE (08:00)
[2020-03-07] MEDS ORDERED: ALBUTEROL SULFATE 2.5 MG/3 ML ONE (09:03)
== END 2020-03-07 10:50 | disposition home or self-care (01) ==
LOC: OUT 06:26
PROVIDERS: ATTEND Internal Medicine
DX: J45.50 Severe persistent asthma, uncomplicated (principal); J30.9 Allergic rhinitis, unspecified; I10 Essential (primary) hypertension; E78.2 Mixed hyperlipidemia; G47.33 Obstructive sleep apnea (adult) (pediatric); Z79.899 Other long term (current) drug therapy; Z88.5 Allergy status to narcotic agent
CPT/HCPCS: 31660; 99152; 99153; C1886; J1200; J2250; J3010; J7030

== ENCOUNTER 2020-03-26 09:03 | Day surgery (SDC) | payer OTHER ==
[~2020-03-26] VITALS: Ht 172.7 cm; Wt 96.2 kg
[~2020-03-26 09:03] MED LIST changes: +EPINEPHRINE SYRINGE 0.1 MG/ML, 10ML ONE; +LIDOCAINE 2%, 20ML ONE; +ROCURONIUM 10MG/ML,5ML ONE
[2020-03-26 09:27] VITALS: BP 151/92
[2020-03-26] MEDS ORDERED: CHLORHEXIDINE 15 ML UDC MM ONE (09:30)
[2020-03-26] MEDS ORDERED: DIPHENHYDRAMINE 50 MG/ML, 1ML IVPush PRN (09:30)
[2020-03-26] MEDS ORDERED: OXYcodone 5 MG/5 ML ORAL.SOL UDC PO PRN (09:30)
[2020-03-26] MEDS ORDERED: EPHEDRINE 50 MG/ML, 1ML IVPush PRN (09:30)
[2020-03-26] MEDS ORDERED: ALBUTEROL/IPRATROPIUM 2.5MG/0.5MG, 3 ML NPPB PRN (09:30)
[2020-03-26] MEDS ORDERED: METHOCARBAMOL 1,000 MG in DEXTROSE 5% 100 ML IV PRN (09:30)
[2020-03-26] MEDS ORDERED: LABETALOL 5MG/ML, 20ML IV PRN (09:30)
[2020-03-26] MEDS ORDERED: hydrALAzine 20 MG/ML, 1ML IV PRN (09:30)
[2020-03-26] MEDS ORDERED: LORazepam 2 MG/ML, 1ML IVPush PRN (09:30)
[2020-03-26] MEDS ORDERED: LACTATED RINGERS 1,000 ML IV SCH (09:30)
[2020-03-26] MEDS ORDERED: MIDAZOLAM 1 MG/ML, 2ML IV PRN (09:30)
[2020-03-26] MEDS ORDERED: HALOPERIDOL 5 MG/ML IV PRN (09:30)
[2020-03-26] MEDS ORDERED: DIAZEPAM 5 MG/ML, 2ML IVPush PRN (09:30)
[2020-03-26] MEDS ORDERED: MEPERIDINE/PF 25MG/0.5ML IVPush PRN (09:30)
[2020-03-26] MEDS ORDERED: METOCLOPRAMIDE 5 MG/ML, 2ML IVPush PRN (09:30)
[2020-03-26] MEDS ORDERED: ONDANSETRON 2MG/ML, 2ML IVPush PRN (09:30)
[2020-03-26] MEDS ORDERED: EPHEDRINE 50 MG/ML, 1ML IM PRN (09:30)
[2020-03-26] MEDS ORDERED: HYDROcodone/APAP 7.5-325MG/15ML UDC PO PRN (09:30)
[2020-03-26] MEDS ORDERED: FENTANYL PF 100 MCG/2ML IV PRN (09:30)
[2020-03-26] MEDS ORDERED: KETOROLAC 30 MG/1 ML IVPush PRN (09:30)
[2020-03-26] MEDS ORDERED: HYDROmorphone 1 MG/ML, 1ML INJ IVPush PRN (09:30)
[2020-03-26] MEDS ORDERED: ALBUTEROL SULFATE 2.5 MG/3 ML ONE (10:33)
[2020-03-26 10:57] LABS: ANION GAP 9 mmol/L (5-15); CALCIUM 8.7 mg/dL (8.5-10.1); CHLORIDE 110 mmol/L (98-107); CREATININE 0.79 mg/dL (0.55-1.02)
[2020-03-26] MEDS ORDERED: MIDAZOLAM 1 MG/ML, 2ML ONE (11:30)
[2020-03-26] MEDS ORDERED: DEXAMETHASONE 4 MG/ML, 1ML ONE (11:30)
[2020-03-26] MEDS ORDERED: LIDOCAINE-MPF 2% ,5ML ONE (11:30)
[2020-03-26] MEDS ORDERED: GLYCOPYRROLATE 0.2MG/1ML, 5ML ONE (11:30)
[2020-03-26] MEDS ORDERED: PROPOFOL 10 MG/ML, 20ML ONE (11:30)
[2020-03-26] MEDS ORDERED: DIPHENHYDRAMINE 50 MG/ML, 1ML ONE (11:36)
[2020-03-26] MEDS ORDERED: GLYCOPYRROLATE 0.4 MG/2 ML, 2ML ONE (11:36)
[2020-03-26] MEDS ORDERED: HYDROmorphone 1 MG/ML, 1ML INJ ONE (13:28)
[2020-03-26] MEDS ORDERED: FENTANYL PF 100 MCG/2ML ONE (13:28)
[2020-03-26] MEDS ORDERED: OXYcodone 5 MG/5 ML ORAL.SOL UDC ONE (13:29)
[2020-03-26] MEDS ORDERED: KETOROLAC 30 MG/1 ML ONE (13:45)
[2020-03-26] MEDS ORDERED: ALBUTEROL HFA 90 MCG/SPRAY ONE (13:57)
[2020-03-26] MEDS ORDERED: ALBUTEROL HFA 90 MCG/SPRAY INH ONE (14:00)
== END 2020-03-26 15:20 | disposition home or self-care (01) ==
LOC: OUT 09:03
PROVIDERS: ATTEND Internal Medicine
DX: J45.50 Severe persistent asthma, uncomplicated (principal); Z20.828 Contact with and (suspected) exposure to other viral communicable diseases; J30.9 Allergic rhinitis, unspecified; I10 Essential (primary) hypertension; K21.9 Gastro-esophageal reflux disease without esophagitis; E78.2 Mixed hyperlipidemia; G47.33 Obstructive sleep apnea (adult) (pediatric); E66.9 Obesity, unspecified; Z68.31 Body mass index [BMI] 31.0-31.9, adult; Z79.899 Other long term (current) drug therapy; Z88.5 Allergy status to narcotic agent
CPT/HCPCS: 31661; 36415; 80048; 87635; 94060; C1886; J1100; J1200; J1885; J2250; J2704; J3010; J7120

== ENCOUNTER → 2020-12-23 | Outpatient (CLI) | payer OTHER ==
[~2020-12-23] MED LIST changes: +ALBU8.5H8 INH; -EPINEPHRINE SYRINGE 0.1 MG/ML, 10ML ONE; +FLUT1BLS15 INH; -LIDOCAINE 2%, 20ML ONE; +MELA1TAB15 PO; -ROCURONIUM 10MG/ML,5ML ONE
[2020-12-23 09:48] LABS: BASOPHILS % (AUTO) 1 % (0-1); EOSINOPHILS % (AUTO) 4 % (1-7); LYMPHOCYTES % (AUTO) 23 % (22-44); MEAN CORPUSCULAR HEMOGLOBIN 32.5 pg (27.0-34.8); MEAN CORPUSCULAR HGB CONC 34.8 g/dL (32.4-35.8); MONOCYTES % (AUTO) 8 % (2-9); NEUTROPHILS % (AUTO) 65 % (42-75); PLATELET COUNT 224 x10^3/uL (130-400); RED BLOOD COUNT 4.49 x10^6/uL (3.82-5.3); RED CELL DISTRIBUTION WIDTH 12.5 % (9.6-15.2)
[2020-12-23 10:13] LABS: PROTHROMBIN TIME 10.7 Seconds (9.6-11.5)
== END | disposition home or self-care (01) ==
LOC: STAR 07:57
PROVIDERS: ATTEND Internal Medicine
DX: Z01.818 Encounter for other preprocedural examination (principal); R05 Cough
CPT/HCPCS: 36415; 85025; 85610; 85730

== ENCOUNTER → 2020-12-23 | Outpatient (CLI) | payer OTHER ==
[~2020-12-23] MED LIST changes: +ESTR1PAT10 TP
[2020-12-23 10:00] LABS: ALANINE AMINOTRANSFERASE 54 U/L (12-78); ALBUMIN 4.1 g/dL (3.4-5.0); ANION GAP 5 mmol/L (5-15); CALCIUM 9.5 mg/dL (8.5-10.1); CHLORIDE 106 mmol/L (98-107); CHOLESTEROL, TOTAL 234 mg/dL (140-239); CREATININE 0.65 mg/dL (0.55-1.02)
[2020-12-23 10:02] LABS: ALKALINE PHOSPHATASE 76 U/L (45-117); BILIRUBIN,TOTAL 1.2 mg/dL (0.2-1.0); CHOL/HDL RATIO 3.1; HDL CHOL % 32 % (28-40); HDL CHOLESTEROL (DIRECT) 76 mg/dL (40-60); LDL CHOLESTEROL,CALCULATED 123 mg/dL (54-169); LDL/HDL RATIO 1.6 (0.5-3.0); TOTAL PROTEIN 7.6 g/dL (6.4-8.2); TRIGLYCERIDES 174 mg/dL (50-200); VLDL CHOLESTEROL 35 mg/dL (0-25)
== END | disposition home or self-care (01) ==
LOC: LAB 08:04
PROVIDERS: ATTEND Internal Medicine
DX: I10 Essential (primary) hypertension (principal); J45.998 Other asthma; D84.9 Immunodeficiency, unspecified; B44.9 Aspergillosis, unspecified; J47.9 Bronchiectasis, uncomplicated; R05 Cough
CPT/HCPCS: 36415; 80053; 80061; 82043; 82784; 82785; 86331; 86602; 86606; 86609; 86671; 87305

== ENCOUNTER → 2020-12-23 | Outpatient (CLI) | payer OTHER ==
[~2020-12-23] MED LIST changes: -ESTR1PAT10 TP
== END | disposition home or self-care (01) ==
LOC: RAD 08:01
PROVIDERS: ATTEND Internal Medicine
DX: R91.8 Other nonspecific abnormal finding of lung field (principal); J84.10 Pulmonary fibrosis, unspecified; R05 Cough
CPT/HCPCS: 71250

== ENCOUNTER 2020-12-29 11:06 | Day surgery (SDC) | payer OTHER ==
[~2020-12-29] VITALS: Ht 172.7 cm; Wt 96.2 kg
[2020-12-29 11:28] VITALS: BP 155/84
[2020-12-29] MEDS ORDERED: SODIUM CHLORIDE 0.9% 1,000 ML IV SCH (12:00)
[2020-12-29] MEDS ORDERED: ESTR1PAT10 TP (12:03)
[2020-12-29] MEDS ORDERED: FENTANYL PF 100 MCG/2ML ONE ×2 (12:26→12:27)
[2020-12-29] MEDS ORDERED: MIDAZOLAM 1 MG/ML, 5ML ONE (12:27)
[2020-12-29] MEDS ORDERED: CHLORHEXIDINE 15 ML UDC ONE (12:27)
[2020-12-29] MEDS ORDERED: BENZOCAINE 20% SPRAY 0.5ML ONE (19:28)
[2020-12-29] MEDS ORDERED: LIDOCAINE GEL 2%, 5ML ONE (19:28)
[2020-12-29] MEDS ORDERED: LIDOCAINE 2%, 20ML ONE (19:28)
== END 2020-12-29 15:30 | disposition home or self-care (01) ==
LOC: OUT 11:06
PROVIDERS: ATTEND Internal Medicine
DX: R91.8 Other nonspecific abnormal finding of lung field (principal); J45.40 Moderate persistent asthma, uncomplicated; J30.9 Allergic rhinitis, unspecified; G47.33 Obstructive sleep apnea (adult) (pediatric); I10 Essential (primary) hypertension; Z79.899 Other long term (current) drug therapy; Z87.891 Personal history of nicotine dependence; Z88.5 Allergy status to narcotic agent
CPT/HCPCS: 31624; 87015; 87070; 87077; 87102; 87107; 87116; 87186; 87205; 87206; 99152; 99153; J2250; J3010; J7030

== ENCOUNTER 2021-02-17 13:29 | Outpatient (CLI) | payer OTHER ==
[~2021-02-17 13:29] MED LIST changes: +ESTR1PAT10 TP
== END 2021-02-17 23:59 | disposition home or self-care (01) ==
LOC: CFH 13:29
PROVIDERS: ATTEND Family Medicine
DX: Z12.31 Encounter for screening mammogram for malignant neoplasm of breast (principal)
CPT/HCPCS: 77063; 77067